=== PATIENT | male | born 1935 | race Caucasian/White ===

== ENCOUNTER 2021-07-26 13:54 | Inpatient (IN) | payer MEDICARE, OTHER ==
[~2021-07-26] VITALS: Ht 177.8 cm; Wt 89.9 kg
[~2021-07-26 13:54] MED LIST: AUGMENTIN 875-1 EACH PO; ELIQUIS 5 MG TAB5 MG PO; FERROUS SULFAT325 M2 PO; GLUCOPHAGE500 MG PO; HYTRIN CAP 5 MG5 MG PO; LASIX20 MG PO; LOPRESSOR50 MG PO; NAPROSYN500 MG PO; PEPCID20 MG PO; PROSCAR5 MG PO; ZESTRIL2.5 MG PO
[2021-07-26 15:01] LABS: HEMOGLOBIN 13.8 gm/dl (14.0-17.5); WHITE BLOOD COUNT 3.8 K/UL (4.5-11.0)
[2021-07-26 15:23] LABS: BUN/CREATININE RATIO 23 (0-10)
[2021-07-26] MEDS ORDERED: GLIPIZIDE5 MG PO (18:33)
[2021-07-26] MEDS ORDERED: AMLODIPINE BESY10 MG PO (18:34)
[2021-07-26] MEDS ORDERED: PROVENTIL HFA6.7 GM INH (18:34)
[2021-07-26] MEDS ORDERED: KLONOPIN0.5 MG PO (18:35)
[2021-07-26] MEDS ORDERED: TERBINAFINE HC250 MG PO (18:37)
[2021-07-26] MEDS ORDERED: ACETAMINOPHEN500 MG PO (18:38)
[2021-07-26] MEDS ORDERED: ASPIRIN EC81 MG PO (18:38)
[2021-07-27 04:17] LABS: HEMOGLOBIN 12.6 gm/dl (14.0-17.5); RED BLOOD COUNT 4.63 M/UL (4.20-5.50); WHITE BLOOD COUNT 3.7 K/UL (4.5-11.0)
[2021-07-27 04:39] LABS: BUN/CREATININE RATIO 20 (0-10)
[2021-07-29 06:27] LABS: WHITE BLOOD COUNT 3.6 K/UL (4.5-11.0)
[2021-07-29 06:28] LABS: HEMOGLOBIN 14.9 gm/dl (14.0-17.5); RED BLOOD COUNT 5.37 M/UL (4.20-5.50)
[2021-07-29] MEDS ORDERED: ATORVASTATIN CA20 MG PO (08:43)
[2021-07-29] MEDS ORDERED: LASIX20 MG PO (08:43)
[2021-07-29] MEDS ORDERED: OMNICEF 300 MG300 MG PO (08:48)
[2021-07-29] MEDS ORDERED: LISINOPRIL5 MG PO (08:48)
== END 2021-07-29 14:01 | disposition home or self-care (01) | DRG 291 ==
LOC: ER1 13:54 → CDU 16:37 → MED SURG 4 16:37
PROVIDERS: Internal Medicine; Physician Assistant; Preventive Medicine Occupational Medicine; ADMIT Internal Medicine
PROC: B24BZZZ Ultrasonography of Heart with Aorta (ICD-10-PCS; principal; 2021-07-27)
DX: I11.0 Hypertensive heart disease with heart failure (principal); J96.21 Acute and chronic respiratory failure with hypoxia; I50.33 Acute on chronic diastolic (congestive) heart failure; J18.9 Pneumonia, unspecified organism; I48.20 Chronic atrial fibrillation, unspecified; I45.10 Unspecified right bundle-branch block; Z20.822 Contact with and (suspected) exposure to COVID-19; D72.819 Decreased white blood cell count, unspecified; J44.9 Chronic obstructive pulmonary disease, unspecified; N40.0 Benign prostatic hyperplasia without lower urinary tract symptoms; E87.6 Hypokalemia; E11.9 Type 2 diabetes mellitus without complications; I27.20 Pulmonary hypertension, unspecified; Z79.82 Long term (current) use of aspirin; Z99.81 Dependence on supplemental oxygen; Z87.891 Personal history of nicotine dependence; Z90.89 Acquired absence of other organs; Z98.890 Other specified postprocedural states; Z88.0 Allergy status to penicillin; Z79.01 Long term (current) use of anticoagulants; Z79.899 Other long term (current) drug therapy
CPT/HCPCS: ECHO; 36415; 36600; 71045; 80048; 80053; 81001; 82550; 82553; 82803; 82962; 83036; 83735; 83880; 84132; 84484; 85025; 85027; 85652; 86140; 93005; 93306; 94640; 94664; 94760; 96374; 99285; J0692; J1650; J1940; U0002